=== PATIENT | male | born 1950 | race Caucasian/White ===

== ENCOUNTER 2017-02-22 12:50 | Emergency (ER) | payer OTHER, MEDICARE ==
[2017-02-22 13:19] VITALS: BP 147/79
== END 2017-02-22 15:47 | disposition home or self-care (01) ==
LOC: ED 12:50
DX: S61.401A Unspecified open wound of right hand, initial encounter (principal); L03.113 Cellulitis of right upper limb; I10 Essential (primary) hypertension; E78.00 Pure hypercholesterolemia, unspecified; E07.9 Disorder of thyroid, unspecified; W18.30XA Fall on same level, unspecified, initial encounter; Y93.89 Activity, other specified; Y99.8 Other external cause status; Y92.89 Other specified places as the place of occurrence of the external cause
CPT/HCPCS: 90715